=== PATIENT | female | born 1960 | race Two or more races ===

== ENCOUNTER 2018-06-22 07:22 | Emergency (ER) | payer SELFPAY ==
[~2018-06-22] VITALS: Ht 170.2 cm; Wt 72.6 kg
[2018-06-22 08:05] LABS: Urine Amorphous Crystal FEW /hpf (None Seen); Urine Bacteria MANY /hpf (None Seen); Urine Blood Negative /uL (Negative); Urine Mucus FEW (None Seen); Urine Specific Gravity 1.021 (1.001-1.035); Urine WBC 18 /hpf (0 - 5)
[2018-06-22] MEDS ORDERED: SODIUM CHLORIDE 0.9% 1,000 ML IVB ONE (08:42)
[2018-06-22] MEDS ORDERED: MORPHINE SULFATE 4 MG/ML SYR/VIAL IV ONE (08:45)
[2018-06-22] MEDS ORDERED: PROMETHAZINE HCL 25 MG/ML 1ML IV PRN (08:45)
[2018-06-22 08:59] LABS: Basophils # (auto) 0.1 uL; Basophils % (auto) 1.3 % (0.0-2.0); Eosinophils # (auto) 0.2 uL; Eosinophils % (auto) 3.7 % (0.0-7.0); Hematocrit 36.3 % (36.0-46.0); Hemoglobin 12.2 g/dL (12.2-16.2); Lymphocytes % (auto) 39.7 % (10.0-50.0); Mean Corpuscular Hemoglobin 30.7 pg (28.0-32.0); Mean Corpuscular Hgb Conc. 33.5 g/dL (32.0-36.0); Mean Corpuscular Volume 91.8 fL (80.0-100.0); Monocytes # (auto) 0.3 uL; Monocytes % (auto) 6.6 % (0.0-12.0); Neutrophils # (auto) 2.5 uL; Neutrophils % (auto) 48.7 % (37.0-80.0); Nucleated Red Blood Cells % 0.2 %; Platelet Count (auto) 264 10^3/uL (140-450); Red Blood Cells 3.95 10^6/uL (4.0-5.20); Red Cell Distribution Width 14.6 % (11.8-14.3); White Blood Cell 5.1 10^3/uL (4.4-10.8)
[2018-06-22 09:15] LABS: Albumin 2.9 g/dL (3.4-5.0); BUN/Creatinine Ratio 29.9; Potassium 3.9 mmol/L (3.5-5.1)
[2018-06-22 09:18] LABS: Bilirubin, Total 0.3 mg/dL (0.2-1.0); Total Protein 7.2 g/dL (6.4-8.2)
[2018-06-22] MEDS ORDERED: FLEET MINERAL OIL ENEMA 133 ML PR ONE (10:45)
[2018-06-22] MEDS ORDERED: cloNIDine HCL 0.1 MG TAB PO ONE (13:00)
[2018-06-22 13:58] VITALS: BP 159/99
== END 2018-06-22 14:38 | disposition home or self-care (01) ==
LOC: ER 07:24
DX: K59.01 Slow transit constipation (principal); N39.0 Urinary tract infection, site not specified; I10 Essential (primary) hypertension; E07.89 Other specified disorders of thyroid; F12.10 Cannabis abuse, uncomplicated; F17.210 Nicotine dependence, cigarettes, uncomplicated; Z86.19 Personal history of other infectious and parasitic diseases
CPT/HCPCS: 36415; 71046; 74176; 80053; 81001; 82150; 83690; 83735; 85025; 96374; 96375; 99285; J2270; J2550; J7030

== ENCOUNTER 2018-06-26 07:26 | Emergency (ER) | payer SELFPAY ==
[~2018-06-26] VITALS: Ht 170.2 cm; Wt 72.6 kg
[2018-06-26 10:23] LABS: Urine Bacteria NONE SEEN /hpf (None Seen); Urine Blood Negative /uL (Negative); Urine Specific Gravity 1.006 (1.001-1.035); Urine WBC 2 /hpf (0 - 5)
[2018-06-26] MEDS ORDERED: ACETAMINOPHEN 325 MG TAB PO ONE (10:30)
[2018-06-26 10:34] VITALS: BP 168/98
== END 2018-06-26 11:11 | disposition home or self-care (01) ==
LOC: ER 07:26
DX: I10 Essential (primary) hypertension (principal); N39.0 Urinary tract infection, site not specified; E07.89 Other specified disorders of thyroid; F12.10 Cannabis abuse, uncomplicated
CPT/HCPCS: 81001; 81002; 93005

== ENCOUNTER 2020-02-22 12:02 | Emergency (ER) | payer MEDICAID ==
[~2020-02-22] VITALS: Ht 172.7 cm; Wt 72.6 kg
[2020-02-22 12:09] VITALS: BP 150/81
[2020-02-22 12:57] LABS: Basophils # (auto) 0 10 ^3/uL (0-0.2); Basophils % (auto) 0.5 % (0.0-2.0); Eosinophils # (auto) 0.2 10 ^3/uL (0-0.8); Eosinophils % (auto) 3.9 % (0.0-7.0); Hematocrit 39.8 % (36.0-46.0); Hemoglobin 13.3 g/dL (12.2-16.2); Lymphocytes # (auto) 1.9 10 ^3/uL (0.4-5.4); Lymphocytes % (auto) 31.2 % (10.0-50.0); Mean Corpuscular Hemoglobin 30.9 pg (28.0-32.0); Mean Corpuscular Hgb Conc. 33.3 g/dL (32.0-36.0); Mean Corpuscular Volume 92.7 fL (80.0-100.0); Monocytes # (auto) 0.5 10 ^3/uL (0-1.3); Monocytes % (auto) 8.3 % (0.0-12.0); Neutrophils # (auto) 3.4 10 ^3/uL (1.6-8.6); Neutrophils % (auto) 56.1 % (37.0-80.0); Nucleated Red Blood Cells % 0.2 %; Platelet Count (auto) 210 10^3/uL (140-450); White Blood Cell 6.1 10^3/uL (4.4-10.8)
[2020-02-22] MEDS ORDERED: KETOROLAC TROMETH 60MG/2ML VIAL IM ONE (13:00)
[2020-02-22 13:18] LABS: Anion Gap 5 (5-15); Blood Urea Nitrogen 12 mg/dL (7-18); Calcium 8.9 mg/dL (8.5-10.1); Carbon Dioxide 31 mmol/L (21-32); Chloride 105 mmol/L (98-107); Glucose 82 mg/dL (74-106); Potassium 4.5 mmol/L (3.5-5.1); Sodium 141 mmol/L (136-145)
[2020-02-22 13:23] LABS: BUN/Creatinine Ratio 18.8; GFR African American 123 mL/min; GFR Non-African American 101 mL/min
== END 2020-02-22 14:10 | disposition home or self-care (01) ==
LOC: ER 12:02
DX: S16.1XXA Strain of muscle, fascia and tendon at neck level, initial encounter (principal); F41.1 Generalized anxiety disorder; R51 Headache; Z90.710 Acquired absence of both cervix and uterus; X58.XXXA Exposure to other specified factors, initial encounter; Y93.89 Activity, other specified; Y92.89 Other specified places as the place of occurrence of the external cause; Y99.8 Other external cause status
CPT/HCPCS: 36415; 71046; 80048; 84484; 85025; 93005; 96372; 99285; J1885